=== PATIENT | female | born 1980 | race Caucasian/White ===

== ENCOUNTER → 2020-09-09 | Outpatient (CLI) | payer OTHER ==
[~2020-09-09] MED LIST: ATROVENT-HFA12.9 GM INH; AZITHROMYCIN250 MG PO; CEFPODOXIME PR200 MG PO; DEXAMETHASONE1 MG PO; LISINOPRIL10 MG PO; MEDROL4 MG PO; TESSALON PERLE100 MG PO; VENTOLIN HFA 66.7 GM INH; ZITHROMAX500 MG PO; ZOFRAN ODT 4 MG4 MG SL
== END ==
LOC: KOH-I 11:55
DX: R06.00 Dyspnea, unspecified (principal)
CPT/HCPCS: 71046

== ENCOUNTER → 2020-11-03 | Outpatient (CLI) | payer OTHER | LOC: EXRD 09:15 | DX: R94.5 Abnormal results of liver function studies (principal); R93.2 Abnormal findings on diagnostic imaging of liver and biliary tract | CPT/HCPCS: 76705 ==

== ENCOUNTER → 2020-11-09 | Outpatient (CLI) | payer OTHER | LOC: HEART 5 10:24 | DX: J45.909 Unspecified asthma, uncomplicated (principal) | CPT/HCPCS: 94010 ==